=== PATIENT | male | born 2000 | race Two or more races ===

== ENCOUNTER 2025-04-22 19:44 | Emergency (ER) | payer MEDICAID ==
[~2025-04-22] VITALS: Ht 177.8 cm; Wt 71.4 kg
--- NOTE | 2025-04-22 20:52 | ED.PDOC ---
History of Present Illness HPI Comments 25-year-old male who came to ER for suicidal ideations. Patient is homeless. Has prior suicide attempts, has anxiet and depression with currently he has not on any medication. Has been feeling suicidal for the past 2 months. Has been hearing voices. Has been cutting his left wrist. Patient has never been admitted to any [facility] institution REVIEW OF SYSTEMS: General: No fever, no chills, HEENT: No neck pain, no blurred vision Cardiac: No chest pain. No palpitations. Lungs: No shortness of breath, GI: No abdominal pain, no vomiting Musculoskeletal: No joint pain , no back pain Skin: No rash, no wound Neuro: No headache, no dizziness, no syncope Psych:+ suicidal ideation+ auditory hallucinations PHYSICAL EXAM: General: Awake, alert and oriented. No acute distress. Skin: Skin in warm, dry and intact without rashes or lesions. HEENT: The head is normocephalic and atraumatic. Conjunctivae are clear without exudates or hemorrhage. Sclera is non-icteric. Neck: Normal range of motion. No JVD. Cardiac: Regular rate Respiratory: No signs of respiratory distress. No Stridor. Extremities: Multiple superficial linear lacerations left wrist Neurological: The patient is awake, alert and oriented to person, place, and time with normal speech. Speech is clear. There is no facial asymmetry. Psychiatric: Flat affect, depressed mood Chief Complaint: Suicidal Time Seen by MD: 20:51 Reviewed Notes: Nurses Notes Allergies: Coded Allergies: NO KNOWN ALLERGIES (Unverified , 04/23/25) Information Source: Patient Mode of Arrival: Ambulatory Severity: Moderate Timing: Weeks Past Medical History PAST MEDICAL HISTORY: Anxiety, Depression Past Medical History (Other): Suicide attempt Surgical History: Denies all surgeries Family History Family History: Reviewed,noncontributory to illness Social History Smoker: Non-Smoker Alcohol: Denies ETOH Use Drugs: Denies Drug Use Lives In: Homeless Was a procedure done? Was a procedure done?: No Differential Dx Considerations may include: Anxiety, depression, suicide ideation, other X-Ray, Labs, Meds, VS Vital Signs Date Time Temp Pulse Resp B/P (MAP) Pulse Ox O2 Delivery O2 Flow Rate FiO2 04/23/25 10:30 98.2 85 14 115/62 (79) 98 98.2 04/23/25 07:30 85 14 98 Room Air* 0 04/23/25 07:30 98.2 85 14 102/57 (72) 98 98.2 04/23/25 04:00 95 18 99 Room Air* 0 04/23/25 04:00 97.7 95 18 128/78 (95) 99 97.7 04/22/25 20:06 97.8 106 18 124/74 100 97.8 Lab Test 04/23/25 03:23 04/22/25 21:05 Range/Units Urine Color Light-yellow Yellow Urine Clarity Clear Clear Urine pH 7.0 5.0-9.0 Urine Specific Hope 1.020 1.001-1.035 Urine Protein Negative Negative Urine Ketones Negative Negative Urine Blood Negative Negative /uL Urine Nitrite Negative Negative Urine Bilirubin Negative Negative Urine Urobilinogen Normal Negative mg/dL Urine Leukocyte Esterase Negative Negative /uL Urine RBC None seen 0 - 3 /hpf Urine Microscopic WBC < 1 0-3 /HPF Urine Squamous Epithelial Cells None seen <5 /hpf Urine Bacteria None seen None Seen /hpf Urine Sperm Present None Seen /hpf Urine Glucose Normal Normal mg/dL Urine Opiates Screen Neg NEGATIVE Urine Fentanyl Screen Neg NEGATIVE Urine Barbiturates Screen Neg NEGATIVE Urine Phencyclidine Screen Neg NEGATIVE Urine Amphetamines Screen Neg NEGATIVE Urine Benzodiazepines Screen Neg NEGATIVE Urine Cocaine Screen Neg NEGATIVE Urine Cannabinoids Screen Neg NEGATIVE White Blood Count 5.1 4.4-10.8 10^3/uL Red Blood Count 4.76 4.5-5.90 10^6/uL Hemoglobin 14.8 13.5-17.5 g/dL Hematocrit 42.3 41.0-53.0 % Mean Corpuscular Volume 88.8 80.0-100.0 fL Mean Corpuscular Hemoglobin 31.1 28.0-32.0 pg Mean Corpuscular Hemoglobin Concent 35.0 32.0-36.0 g/dL Red Cell Distribution Width 12.9 11.8-14.3 % Platelet Count 235 140-450 10^3/uL Mean Platelet Volume 7.9 6.9-10.8 fL Neutrophils (%) (Auto) 53.6 37.0-80.0 % Lymphocytes (%) (Auto) 28.2 10.0-50.0 % Monocytes (%) (Auto) 10.5 0.0-12.0 % Eosinophils (%) (Auto) 7.1 H 0.0-7.0 % Basophils (%) (Auto) 0.6 0.0-2.0 % Neutrophils # (Auto) 2.8 1.6-8.6 10 ^3/uL Lymphocytes # (Auto) 1.4 0.4-5.4 10 ^3/uL Monocytes # (Auto) 0.5 0-1.3 10 ^3/uL Eosinophils # (Auto) 0.4 0-0.8 10 ^3/uL Basophils # (Auto) 0 0-0.2 10 ^3/uL Nucleated Red Blood Cells 0.1 % Sodium Level 144 136-145 mmol/L Potassium Level 4.3 3.5-5.1 mmol/L Chloride Level 108 H 98-107 mmol/L Carbon Dioxide Level 26 20-31 mmol/L Anion Gap 10 5-15 Blood Urea Nitrogen < 5 L 9-23 mg/dL Creatinine 0.72 0.700-1.30 mg/dL Glomerular Filtration Rate Calc 131 >90 mL/min BUN/Creatinine Ratio 6.9 L 10.0-20.0 Serum Glucose 98 74-106 mg/dL Calcium Level 8.8 8.7-10.4 mg/dL Plasma/Serum Blood Alcohol < 3.0 <10 mg/dL Current Medications Medications (Trade) Dose Ordered Sig/Ameena Route Start Time Stop Time Status Last Admin Nicotine (Nicoderm 14MG/ 24HR) 1 patch ONCE ONCE TD 04/23/25 07:45 04/23/25 07:46 DC 04/23/25 07:45 Time of 1ST Reevaluation: 20:48 Reevaluation 1ST: Unchanged Consultation: Psychiatry (Recommendation from DR. DURANT: Transfer to [facility] when bed available.) Patient Education/Counseling: Other Family Education/Counseling: No Family Present Change of Shift?: Yes (04/23/25 @[address] Bianchi.) SEPSIS Sepsis Screen Date sepsis recognized/suspect: Apr 22, 2025 Time Sepsis recognized/suspect: 2005 Recent Procedure: No On Antibiotic Therapy: No Respiratory Rate >20: No Heart Rate >90: No Temp<36 C (96.8 F) or >38.3 C: No SBP <90 or MAP <65 mmHG: No New Acute Mental Status Change: No Is the patient on CPAP, BIPAP,: No Physician Orders * Psychiatric Consult (04/22/25 02:21) Sitter At Bedside (04/22/25 20:41) Soc Telemed Psych Consult (04/22/25 20:41) * Animal Eviscerator Consult (04/23/25 ) Vital Signs Date Time Temp Pulse Resp B/P (MAP) Pulse Ox O2 Delivery O2 Flow Rate FiO2 04/23/25 10:30 98.2 85 14 115/62 (79) 98 98.2 04/23/25 07:30 85 14 98 Room Air* 0 21 04/23/25 07:30 98.2 85 14 102/57 (72) 98 98.2 04/23/25 04:00 95 18 99 Room Air* 0 21 04/23/25 04:00 97.7 95 18 128/78 (95) 99 97.7 04/22/25 20:06 97.8 106 18 124/74 100 97.8 Laboratory Tests Test 04/22/25 21:05 White Blood Count 5.1 10^3/uL (4.4-10.8) Departure 1 Departure Time of Disposition: 11:44 (Patient was medically cleared. Patient was evaluate by psychiatry and cleared for discharge. Patient is feeling well without any SI or HI. We will discharge patient home with outpatient follow up) Impression: Primary Impression: Depressed affect Disposition: 01 HOME / SELF CARE / HOMELESS Condition: Stable Additional Instructions: It is important to continue to take your regular medications follow up with the regular doctors. Discharged With: Self Critical Care Note Critical Care Time?: No Stability Stability form required: No Heart Score Heart Score: Heart Score Response (Comments) Value History N/A 0 EKG N/A 0 Age N/A 0 Risk Factors N/A 0 Troponin N/A 0 Total 0 I personally scribed for SUMEET SANCHEZ MD ([email or web address]) on 04/22/25 at 20:52. Electronically submitted by Wilman Bright ([email or web address]). SUMEET SANCHEZ MD Apr 22, 2025 20:52 SOPHIE BIANCHI MD Apr 23, 2025 11:46
[2025-04-22 21:38] LABS: Potassium 4.3 mmol/L (3.5-5.1); Sodium 144 mmol/L (136-145)
[2025-04-22 21:39] LABS: Anion Gap 10 (5-15); Calcium 8.8 mg/dL (8.7-10.4); Carbon Dioxide 26 mmol/L (20-31)
[2025-04-22 21:44] LABS: Glucose 98 mg/dL (74-106)
[2025-04-22 21:46] LABS: BUN/Creatinine Ratio 6.9 (10.0-20.0); Blood Urea Nitrogen < 5 mg/dL (9-23); Chloride 108 mmol/L (98-107)
[2025-04-22 21:49] LABS: Hematocrit 42.3 % (41.0-53.0); Hemoglobin 14.8 g/dL (13.5-17.5); Mean Corpuscular Hemoglobin 31.1 pg (28.0-32.0); Mean Corpuscular Volume 88.8 fL (80.0-100.0); Nucleated Red Blood Cells % 0.1 %
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
[2025-04-23 04:00] VITALS: PULSE 95; RESP 18; O2SAT 99
[2025-04-23 04:01] LABS: Amphetamine Screen, Urine Neg (NEGATIVE)
[2025-04-23 04:03] LABS: Barbiturate Scree,Urine Neg (NEGATIVE); Benzodiazephine Screen, Urine Neg (NEGATIVE); Cannabinoid Screen, Urine Neg (NEGATIVE); Cocaine Screen, Urine Neg (NEGATIVE); Opiate Scree,Urine Neg (NEGATIVE); Phencyclidine Screen, Urine Neg (NEGATIVE)
[2025-04-23 04:06] LABS: Urine Protein, UAD Negative (Negative)
[2025-04-23 07:30] VITALS: PULSE 85; RESP 14; O2SAT 98
[2025-04-23] MEDS: NICOTINE 14 MG/24HR TOPICAL PATCH TD ONE (07:45)
[2025-04-23 10:30] VITALS: BP 115/62; PULSE 85; RESP 14; TEMP 98.2; O2SAT 98
== END 2025-04-23 11:51 | disposition home or self-care (01) ==
LOC: ER 19:44
DX: F32.A Depression, unspecified (principal); Z59.00 Homelessness unspecified; Z79.899 Other long term (current) drug therapy
CPT/HCPCS: 36415; 80048; 80307; 80320; 81001; 85025